=== PATIENT | male | born 2000 | race Caucasian/White ===

== ENCOUNTER → 2020-07-11 | Outpatient (CLI) | payer BC | LOC: COL.RAD 06:39 | DX: R10.13 Epigastric pain (principal) ==

== ENCOUNTER 2020-07-17 06:59 | Day surgery (SDC) | payer BC ==
[~2020-07-17] VITALS: Ht 179.1 cm; Wt 120.5 kg
[2020-07-17 07:13] VITALS: BP 156/90; PULSE 93; TEMP 97.5
[2020-07-17] MEDS ORDERED: CARAFATE 1GM1 G PO (07:17)
[2020-07-17] MEDS ORDERED: PRIL40 PO (07:17)
[2020-07-17] MEDS ORDERED: PHENERGAN 25 TA25 MG PO (07:18)
[2020-07-17] MEDS ORDERED: ZOFRAN8 MG PO (07:18)
[2020-07-17 08:40] VITALS: BP 115/50; PULSE 81; TEMP 98.5
--- NOTE | 2020-07-17 08:40 | NUR ---
The patient arrived back to [facility] [facility] from [facility] at this time. The patient appears alert and oriented and ambulated from the cart to the recliner in his room with the stand by assistance of two nurses. Post procedure vital signs were started at this time. The patient agrees to try some apple juice. Will continue to monitor hte patient.
[2020-07-17 08:55] VITALS: BP 106/52; PULSE 86
--- NOTE | 2020-07-17 08:55 | NUR ---
The patient has finished his juice and appeared to tolerate it well. The patient denies wanting anything further to eat or drink at this time. Vital signs appear stable. Will continue to monitor the patient.
--- NOTE | 2020-07-17 09:05 | NUR ---
Dr. Carrillo is at the patient's bedside discussing the findings of the procedure with him. Will continue to monitor the patient.
[2020-07-17 09:10] VITALS: BP 113/67; PULSE 77
--- NOTE | 2020-07-17 09:10 | NUR ---
Discharge instructions were reviewed with the patient at this time. He verbalized understanding and has no questions for the nurse at this time. The patient's IV to his right hand was removed and a pressure dressing was applied to the site. The nurse instructed the patient to get dressed and notify the staff when he is ready to be escorted out.
--- NOTE | 2020-07-17 09:18 | NUR ---
The patient was escorted out via wheelchair to a private vehicle by ERIKA Fuller. The patient's belongings and discharge paperwork were sent with him. The patient's friend, Corey, is present to drive him home.
== END 2020-07-17 09:18 | disposition home or self-care (01) ==
LOC: SDCO 06:59
DX: K29.30 Chronic superficial gastritis without bleeding (principal); J45.909 Unspecified asthma, uncomplicated
CPT/HCPCS: J2704; J7120